=== PATIENT | female | born 1985 | race Caucasian/White ===

== ENCOUNTER 2017-02-18 11:58 | Inpatient (IN) | payer BC, OTHER ==
[2017-02-18] MEDS ORDERED: LIDOCAINE HCL 50 ML VIAL PERI PRN (12:22)
[2017-02-18] MEDS ORDERED: OXYTOCIN/DEXTROSE 5%-WATER 30 UNITS/500 ML BAG IV ONE (12:22)
[2017-02-18] MEDS ORDERED: PENICILLIN G POTASSIUM 5 MILLIONUNT in DEXTROSE 5 % IN WATER 100 ML IV ONE ×2 (12:22)
[2017-02-18] MEDS: DEXTROSE 5%-LACTATED RINGERS 1,000 ML IV PRN ×3 (12:50→21:09)
[2017-02-18] MEDS ORDERED: RINGER'S SOLUTION,LACTATED 1,000 ML IV ONE (15:08)
[2017-02-18] MEDS ORDERED: NALOXONE HCL 1 MG/1 ML SYRG IV PRN (15:11)
[2017-02-18] MEDS ORDERED: BUPIVACAINE HCL/0.9 % NACL/PF 250 ML EP PRN (15:11)
[2017-02-18] MEDS ORDERED: ONDANSETRON HCL/PF 2 MG/ML VIAL IV PRN (15:11)
[2017-02-18] MEDS ORDERED: fentaNYL CITRATE/PF 50 MCG/ML AMPUL IT SCH (15:15)
--- NOTE | 2017-02-18 15:40 | OR ---
Anesthesia Pre Procedure Eval Date of Service: 02/18/17 Pre Procedure Evaluation: Anesthesia Pre Procedure Evaluation Heart Rate: 93 Blood Pressure: 145/79 Temperature: 36.5C Respiratory Rate: [] SaO2: 97 DATE: 02/18/2017 TIME: 1535 INDICATIONS: Active labor, labor pain PAST MEDICAL HISTORY: Primipara patient in active labor requesting labor analgesia History of GERD: No History of smoking: No History of sleep apnea: No EXAM: Heart regular; lungs clear ASSESSMENT OF MEDICAL STATUS: Appropriate candidate for labor analgesia PLANNED PROCEDURE: Combination spinal epidural for labor analgesia Home Medications: HOME MEDICATIONS Doxylamine Succinate [Unisom] 12.5 mg PO HS 02/18/17 [Last Taken Unknown] Vits96/Iron Fum/Folic [ S] 1 tab PO DAILY 02/18/17 [Last Taken Unknown]
--- NOTE | 2017-02-18 16:03 | OR ---
Anesthesia Procedure Note - Anesthesia Procedure Note Date of Service: 02/18/17 Narrative: 02/18/17 16:02 ANESTHESIA PROCEDURE NOTE Date of Procedure: 02/18/2017 Time of procedure: 1535. Performed by: ALONDRA Grier CRNA, MSN Circular Knitter: Jo-Ann Issa RN. Preprocedure diagnosis: Active labor, labor pain. Post procedure diagnosis: Same. Procedure:Epidural for labor analgesia L3 4. Indications: Labor pain. Findings: See below. Details of the procedure: The patient was placed on the side of the bed in sitting positionand prepped with DuraPrep then draped in a sterile fashion. Lidocaine 1% was infiltrated to the skin and subcutaneous tissues at the level of the L3 4 interspace. An 18-gauge Touhy needle was used to approach the epidural space with loss of resistance technique. Once loss of resistance was achieved a 24-gauge Pencan needle was passed through the epidural needle and CSF was contacted. After CSF returned fentanyl 20 mcg of fentanyl was injected in the spinal needle was removed the epidural catheter was then threaded approximately 4 cm in the epidural needle was removed. The catheter was taped in place and after careful aspiration 3 mL of 1.5% lidocaine with 1-200,000 epinephrine was injected without change in maternal heart rate or sensorium. . EBL: Minimal. Fluids: N/A. Specimen: N/A. Post procedure condition: The patient tolerated the procedure well with good relief. No complications were noted. Thank you for this consultation. Justice Rhoades CRNA, ALONDRA, MSN
[2017-02-18] MEDS: PENICILLIN G POTASSIUM 2.5 MILLIONUNT in DEXTROSE 5 % IN WATER 100 ML IV SCH ×6 (16:09→23:48)
[2017-02-19] MEDS: DEXTROSE 5%-LACTATED RINGERS 1,000 ML IV PRN (02:20)
[2017-02-19] MEDS: PENICILLIN G POTASSIUM 2.5 MILLIONUNT in DEXTROSE 5 % IN WATER 100 ML IV SCH ×2 (03:59)
[2017-02-19] MEDS ORDERED: OXYTOCIN/DEXTROSE 5%-WATER 30 UNITS/500 ML BAG IV ONE (07:49)
[2017-02-19] MEDS ORDERED: GLYCERIN/WITCH HAZEL LEAF 40 APPL BOX TP PRN (07:49)
[2017-02-19] MEDS ORDERED: SENNOSIDES 8.6 MG TABLET PO PRN (07:49)
[2017-02-19] MEDS ORDERED: BISACODYL 10 MG SUPP.RECT RC PRN (07:49)
[2017-02-19] MEDS ORDERED: BENZOCAINE/MENTHOL 81 SPRAY CAN TP PRN (07:49)
[2017-02-19] MEDS ORDERED: HYDROCORTISONE 30 APPL TUBE TP PRN (07:49)
[2017-02-19] MEDS ORDERED: oxyCODONE HCL/ACETAMINOPHEN 1 TAB TABLET PO PRN (07:49)
--- NOTE | 2017-02-19 07:49 | OR ---
Operative Report - Dictated Report Narrative: Spontaneous vaginal delivery viable female at 0717 on 02/19/2017 with Apgars 8 and 9, weighing 3311 g in BALJINDER position. Tight nuchal cord 1. Cord clamping delayed approximately 1 minute Placenta delivered complete, intact, with three vessel cord Estimated blood loss: 100 mL Lacerations: Left periurethral abrasion with no repair
[2017-02-19] MEDS: oxyCODONE HCL/ACETAMINOPHEN 1 TAB TABLET PO PRN ×3 (09:16→19:09)
[2017-02-19] MEDS: IBUPROFEN 800 MG TABLET PO PRN ×2 (09:17→19:09)
[2017-02-19] MEDS: DOCUSATE SODIUM 100 MG CAPSULE PO SCH ×2 (13:37→19:09)
[2017-02-20] MEDS: oxyCODONE HCL/ACETAMINOPHEN 1 TAB TABLET PO PRN ×4 (02:27→20:34)
[2017-02-20] MEDS: IBUPROFEN 800 MG TABLET PO PRN ×2 (02:27→15:26)
[2017-02-20] MEDS: DOCUSATE SODIUM 100 MG CAPSULE PO SCH ×4 (03:43→20:34)
--- NOTE | 2017-02-20 18:35 | PN ---
Subjective - Date and Time Seen Date: 02/20/17 Time: 18:35 Objective - Vitals Vitals: Last Vital Signs Temp 36.8 C 02/20/17 16:30 Pulse 70 02/20/17 16:30 Resp 20 02/20/17 16:30 BP 134/71 02/20/17 16:30 Pulse Ox 96 02/20/17 16:30 Patient denies complaints. Lochia wnl Abdomen - soft, nontender Uterus - firm, at umbilicus - 1 No calf tenderness Impression: day #1 - s/p spontaneous vaginal delivery. Plan: Continue routine care Cauti Physician Documentation - Urinary Catheter Management Urethral (Sharma) Date of Insertion: 02/18/17 Time of Insertion: 16:43 Date of Removal: 02/19/17 Time of Removal: 06:50
[2017-02-21] MEDS: IBUPROFEN 800 MG TABLET PO PRN ×2 (01:10→07:36)
[2017-02-21] MEDS: DOCUSATE SODIUM 100 MG CAPSULE PO SCH (09:31)
[2017-02-21 13:48] VITALS: BP 129/89
== END 2017-02-21 12:30 | disposition home or self-care (01) | DRG 775 ==
LOC: OB 11:58 → MS 02-20 13:05
PROVIDERS: ADMIT Obstetrics & Gynecology; ATTEND Obstetrics & Gynecology
PROC: 10E0XZZ Delivery of Products of Conception, External Approach (ICD-10-PCS; principal; 2017-02-19)
PROC: 4A1HXCZ Monitoring of Products of Conception, Cardiac Rate, External Approach (ICD-10-PCS; 2017-02-19)
PROC: 00HU33Z Insertion of Infusion Device into Spinal Canal, Percutaneous Approach (ICD-10-PCS; 2017-02-19)
DX: O99.824 Streptococcus B carrier state complicating childbirth (principal); Z68.41 Body mass index [BMI] 40.0-44.9, adult; O69.1XX0 Labor and delivery complicated by cord around neck, with compression, not applicable or unspecified; O99.214 Obesity complicating childbirth; E66.01 Morbid (severe) obesity due to excess calories; O48.0 Post-term pregnancy; Z3A.41 41 weeks gestation of pregnancy; Z37.0 Single live birth